=== PATIENT | male | born 1980 | race Two or more races ===

== ENCOUNTER 2024-06-05 16:56 | Emergency (ER) | payer SELFPAY ==
[~2024-06-05] VITALS: Ht 193 cm; Wt 88.6 kg
[2024-06-05 17:12] VITALS: TEMP 98.5
[2024-06-05] MEDS: orphenadrine citrate 60mg/2ml inj. IM ONE (17:37)
[2024-06-05] MEDS: ketorolac trometh. 30mg/ml inj. IM ONE (17:38)
[2024-06-05] MEDS ORDERED: iohexol 300mg/ml 100ml inj. ONE (17:53)
[2024-06-05] MEDS: HYDROmorphone inj. 0.5 MG/0.5 ML DISP.SYRIN IV ONE (18:17)
[2024-06-05 19:31] LABS: BILIRUBIN,URINE NEGATIVE (Neg); CLARITY,URINE CLEAR (Clear); COLOR,URINE YELLOW (Yellow); GLUCOSE, URINE NEGATIVE (Neg); KETONES,URINE NEGATIVE (Neg); LEUKOCYTE ESTERASE ,URINE NEGATIVE (Neg); NITRITES, URINE NEGATIVE (Neg); OCCULT BLOOD,URINE NEGATIVE (Neg); PROTEIN,URINE NEGATIVE (Neg)
[2024-06-05 19:32] LABS: UA COLLECTION TYPE NON-SPECIFIED
[2024-06-05] MEDS: HYDROcodone/acetaminophen 10/325mg tab PO ONE (19:39)
[2024-06-05 19:49] LABS: URINE AMPHETAMINE SCREEN NEGATIVE (Neg); URINE BARBITUATE SCREEN NEGATIVE (Neg); URINE BENZODIAZEPINES SCREEN POSITIVE (Neg); URINE CANNABINOID SCREEN NEGATIVE (Neg); URINE COCAINE SCREEN NEGATIVE (Neg); URINE METHADONE SCREEN NEGATIVE (Neg); URINE OPIATE SCREEN POSITIVE (Neg); URINE PHENCYCLIDINE SCREEN NEGATIVE (Neg)
[2024-06-05 21:33] LABS: BASOPHILS % (AUTO) 0.5 % (0-1); EOSINOPHILS % (AUTO) 0.8 % (0-6); HEMATOCRIT 37.7 % (42.0-52.0); HEMOGLOBIN 12.3 g/dl (14.0-17.9); LYMPHOCYTES # (AUTO) 0.9 X10'3 (1.1-4.8); LYMPHOCYTES % (AUTO) 13.8 % (21-51); MEAN CORPUSCULAR HGB CONC 32.5 g/dL (33.0-36.5); MEAN CORPUSCULAR VOLUME 89.2 FL (78-98); MEAN PLATELET VOLUME 8.7 FL (7.4-10.4); MONOCYTES # (AUTO) 0.6 X10'3 (0-0.9); MONOCYTES % (AUTO) 10.5 % (2-12); NEUTROPHILS # (AUTO) 4.6 X10'3 (1.8-7.7); NEUTROPHILS % (AUTO) 74.4 % (42-75); PLATELET COUNT 208 X10'3 (140-440); RED BLOOD COUNT 4.22 X10'6 (4.70-6.10); RED CELL DISTRIBUTION WIDTH 18.7 % (11.5-14.5); WHITE BLOOD COUNT 6.2 X10'3 (4.5-11.0)
[2024-06-05 21:47] LABS: ALANINE AMINOTRANSFERASE 18 U/L (12-78); ALBUMIN 3.9 G/DL (3.4-5.0); ALKALINE PHOSPHATASE 63 IU/L (46-116); ANION GAP 13 (8-16); ASPARTATE AMINO TRANSFERASE 12 U/L (10-37); BILIRUBIN,TOTAL 0.3 MG/DL (0.1-1.0); BLOOD UREA NITROGEN 13 MG/DL (7-18); BUN/CREATININE RATIO 13.1 (10.0-20.0); CALCIUM 9.7 MG/DL (8.5-10.1); CHLORIDE 104 MMOL/L (99-107); CREATININE 0.99 MG/DL (0.60-1.10); GLUCOSE 109 MG/DL (70-104); POTASSIUM 4.2 MMOL/L (3.5-5.1); SODIUM 138 MMOL/L (135-145); TOTAL CARBON DIOXIDE 21.4 MMOL/L (24-32); TOTAL PROTEIN 7.9 G/DL (6.4-8.2); eCRCL 117 ML/MIN; eGFR 82 ML/MIN
[2024-06-05] MEDS: HYDROmorphone inj. 0.5 MG/0.5 ML DISP.SYRIN IV STA (22:28)
[2024-06-05] MEDS: diphenhydrAMINE 50 mg/ml inj IV STA (23:24)
[2024-06-05] MEDS: metoclopramide 5 mg/ml inj IV STA (23:27)
[2024-06-05] MEDS: HYDROmorphone 1 mg/ml syringe IV STA (23:29)
[2024-06-06 00:17] VITALS: BP 114/87; PULSE 66; RESP 18; O2SAT 99
== END 2024-06-06 00:21 | disposition still patient (30) ==
LOC: ER 16:57
DX: S32.008A Other fracture of unspecified lumbar vertebra, initial encounter for closed fracture (principal); M54.50 Low back pain, unspecified; R20.2 Paresthesia of skin; R15.9 Full incontinence of feces; N39.498 Other specified urinary incontinence; X58.XXXA Exposure to other specified factors, initial encounter; Y93.89 Activity, other specified; Y92.89 Other specified places as the place of occurrence of the external cause; Y99.8 Other external cause status
CPT/HCPCS: 71260; 74177; 80053; 80305; 81003; 85025; 96372; 96374; 96375; 96376; 99291; J1170; J1200; J1885; J2360; J2765; Q9967